=== PATIENT | male | born 1950 | race Caucasian/White ===

== ENCOUNTER 2022-07-19 05:26 | Observation (INO) | payer BC, MEDICARE, OTHER ==
[2022-07-14 16:59] LABS: BASOPHILS % (AUTO) 0.4 % (0-1); EOSINOPHILS % (AUTO) 0.7 % (0-6); LYMPHOCYTES # (AUTO) 1.4 X10'3 (1.1-4.8); LYMPHOCYTES % (AUTO) 21.1 % (21-51); MEAN CORPUSCULAR HEMOGLOBIN 34.1 PG (27.0-31.0); MEAN CORPUSCULAR HGB CONC 34.4 g/dL (33.0-36.5); MEAN CORPUSCULAR VOLUME 99.3 FL (78-98); MEAN PLATELET VOLUME 6.4 FL (7.4-10.4); MONOCYTES # (AUTO) 0.6 X10'3 (0-0.9); MONOCYTES % (AUTO) 9.6 % (2-12); NEUTROPHILS # (AUTO) 4.5 X10'3 (1.8-7.7); NEUTROPHILS % (AUTO) 68.2 % (42-75); PRE OP HEMATOCRIT 41.6 % (42.0-52.0); PRE OP HEMOGLOBIN 14.3 g/dL (14.0-17.9); PRE OP PLATELET COUNT 218 X10'3 (140-440); RED BLOOD COUNT 4.19 X10'6 (4.70-6.10); RED CELL DISTRIBUTION WIDTH 13.4 % (11.5-14.5)
[2022-07-14 17:22] LABS: ALBUMIN 4.1 G/DL (3.4-5.0); ALBUMIN/GLOBULIN RATIO 1.2 (1.1-1.5); ALKALINE PHOSPHATASE 82 IU/L (46-116); BLOOD UREA NITROGEN 13 MG/DL (7-18); BUN/CREATININE RATIO 14.9 (5.4-32.0); CALCIUM 9.4 MG/DL (8.5-10.1); CHLORIDE 98 MMOL/L (99-107); CREATININE 0.87 MG/DL (0.60-1.10); PRE OP ALT 21 U/L (30-65); PRE OP ANION GAP 6 (8-16); PRE OP AST 25 U/L (10-37); PRE OP BILIRUB, TOTAL 0.7 MG/DL (0.0-1.0); PRE OP GLUCOSE 108 MG/DL (70-104); PRE OP POTASSIUM 4.1 MMOL/L (3.4-5.1); PRE OP SODIUM 133 MMOL/L (135-145); TOTAL CARBON DIOXIDE 28.6 MMOL/L (24-32); TOTAL PROTEIN 7.4 G/DL (6.4-8.2); eGFR 86 ML/MIN
[~2022-07-19] VITALS: Ht 172.7 cm; Wt 82.1 kg
[2022-07-19] VITALS (23 sets, daily range): BP systolic 113–153; BP diastolic 61–85
[~2022-07-19 05:26] MED LIST: ALLO300T8 PO; APIX5TAB3 PO; ATOR20TA66 PO; COLC0.6T72 PO; ESOM40CA54 PO; HYDR12.55 PO; LOSA50TA64 PO; METO-395 PO; ONDA-103 PO; ringers solution, lacted 1,000 ML IV SCH
[2022-07-19] MEDS ORDERED: vancomycin 1,500 MG in NS 300ml IV soln IV ONE (05:30)
[2022-07-19] MEDS ORDERED: tranexamic acid 650mg tablet PO ONE (05:30)
[2022-07-19] MEDS ORDERED: famotidine 20mg tablet PO ONE (05:30)
[2022-07-19] MEDS ORDERED: cefazolin 2gm/D5W 100mL 100 ML IV ONE (05:30)
[2022-07-19] MEDS ORDERED: DOCUMENT DATE & TIME OF BETA-BLOCKER PO ONE (05:30)
--- NOTE | 2022-07-19 05:30 | NUR ---
PULSES PRESENT AND MARKED. PATIENT USED MUPIROCIN CREAM AND DID NOT WATCH VIDEO. EDUCATED PATIENT IN THE USE OF THE INCENTIVE SPIROMETER AND IT IMPORTANCE
[2022-07-19] MEDS ORDERED: ketorolac trometh. 30mg/ml inj. ONE (06:45)
[2022-07-19] MEDS ORDERED: BUPIVAcaine 0.5% inj/PF 0 ML ONE (06:45)
[2022-07-19] MEDS ORDERED: ROPIVAcaine 0.5% (5mg/ml) 30ml vial ONE (06:59)
--- NOTE | 2022-07-19 07:00 | NUR ---
TEMPORARILY HELD TRANEXAMIC ACID TABS UNTIL I SPOKE WITH THE SURGEON. DR SCOTT IS AWARE THE PATIENT IS COLORBLIND AND STATES TO GIVE MEDICATION. ADMIN MED AFTER SPEAKING WITH THE DOCTOR.
[2022-07-19] MEDS ORDERED: fentaNYL/PF 50MCG/1 ML 2ML syringe ONE (07:29)
[2022-07-19] MEDS ORDERED: midazolam 1 mg/ML 2ml injection ONE (07:31)
[2022-07-19] MEDS ORDERED: ondansetron/PF 4mg/2ml inj IV PRN ×2 (07:45→09:45)
[2022-07-19] MEDS ORDERED: ROPIVAcaine 0.2% (10 MG/5 ML) BOLUS INJECTION INTERSCALE PRN (07:45)
[2022-07-19] MEDS ORDERED: ROPIVAcaine 0.2%/PF PUMP/bolus 550 ML ADDCANAL SCH (07:45)
[2022-07-19] MEDS ORDERED: morphine 2 MG/ML inj. syringe IV PRN (07:45)
[2022-07-19] MEDS ORDERED: HYDROmorphone/PF 0.2 MG/ML SYRINGE IV PRN ×2 (07:45)
[2022-07-19] MEDS ORDERED: ringers solution, lacted 1,000 ML IV SCH (07:45)
[2022-07-19] MEDS ORDERED: ROPIVAcaine 0.2%/PF PUMP/bolus 550 ML INTERSCALE SCH (07:47)
[2022-07-19] MEDS ORDERED: sevoflurane 250ml liquid IH ONE (07:49)
[2022-07-19] MEDS ORDERED: LIDOcaine 1%/PF 5ML 10 MG/ML VIAL ONE (09:00)
[2022-07-19] MEDS ORDERED: ondansetron/PF 4mg/2ml inj ONE (09:00)
[2022-07-19] MEDS ORDERED: propofol inj 20 ML IV ONE (09:00)
[2022-07-19] MEDS ORDERED: dexamethasone sod phosphate 4mg/ml inj. ONE (09:00)
[2022-07-19] MEDS ORDERED: acetaminophen 1,000mg/100ml IV 100 ML IV ONE (09:00)
[2022-07-19] MEDS ORDERED: rocuronium 10mg/ml inj IV ONE (09:00)
[2022-07-19] MEDS ORDERED: neostigmine methylsulfate 1 MG/ML 10ml vial ONE (09:01)
[2022-07-19] MEDS ORDERED: glycopyrrolate 0.2mg/ml inj ONE ×2 (09:01→09:25)
--- NOTE | 2022-07-19 09:37 | NUR ---
Received from OR via HOSPITAL BED TO ROOM 6, accompanied by Anesthesiologist DR HUNG and report given by Anesthesiolgist. PT PRESETNS WITH PIV 20G LEFT HAND, RIGHT SHOULDER WRAP WITH POWDER PACK AND SLING, CDI. PT HOOKED UP TOMONITOR, IV TYLENOL RUNNING FROM THE OR ALONG WITH LR INTO PIV. PT HOOKED UP TO SCD, VSS. Addendum: 07/19/22 at 1000 by Shy Alvarado RN, RN Amended: Links added.
[2022-07-19] MEDS: PCA WASTE DOCUMENTATION 1 MG ML MC SCH (09:41)
[2022-07-19] MEDS ORDERED: HYDROmorphone 1 mg/ml syringe IV PRN (09:45)
[2022-07-19] MEDS ORDERED: HYDROcodone/acetaminophen 10/325mg tab PO PRN (09:45)
[2022-07-19] MEDS ORDERED: oxyCODONE IR 5mg (immed. release) tablet PO PRN ×2 (09:45)
[2022-07-19] MEDS ORDERED: magnesium hydroxide 30ml (MOM) UD suspension PO PRN (09:45)
[2022-07-19] MEDS ORDERED: non-formulary drug (Ondansetron HCl 1 TAB) PO PRN (09:45)
[2022-07-19] MEDS ORDERED: colchicine 0.6mg tablet PO PRN (09:45)
[2022-07-19] MEDS ORDERED: diphenhydrAMINE 25mg capsule PO PRN ×2 (09:45)
[2022-07-19] MEDS ORDERED: acetaminophen 325mg tablet PO PRN (09:45)
[2022-07-19] MEDS ORDERED: HYDROmorphone inj. 0.5 MG/0.5 ML DISP.SYRIN IV PRN (09:45)
[2022-07-19] MEDS ORDERED: bisacodyl 10mg suppository rectal RC PRN (09:45)
--- NOTE | 2022-07-19 10:45 | NUR ---
PT'S SHADY CALLED AND WAS GIVEN AN UPDATE ON PT.
--- NOTE | 2022-07-19 11:27 | NUR ---
Report called to receiving nurse ASHLEY CHEN Transferred via HOSPITAL BED TO ROOM 360B BY ANU CHEN. BED IN LOW LOCKED POSITION WITH CLAL LIGHT IN REACH, PT HOOOKED UP TO VITALS MACHINE. TWO PT Belongings BAGS TAKEN TO ROOM 360B. Special Issues communicated to receiving nurse. Addendum: 07/19/22 at 1137 by Shy Alvarado RN RN Amended: Links added.
[2022-07-19] MEDS: potassium cl 20mEq in 1/2 NS 1,000 ML IV SCH ×3 (13:18→20:37)
[2022-07-19] MEDS: acetaminophen 325mg tablet PO SCH ×2 (14:53→20:40)
[2022-07-19] MEDS: ceFAZolin/D5W- 1GM premix 50 ML IV SCH (16:14)
--- NOTE | 2022-07-19 18:05 | NUR ---
Problems reprioritized. Patient report given, questions answered & plan of care reviewed with Perla CHEN.
[2022-07-19] MEDS ORDERED: vancomycin/NS 1 GM ADD-VANTAGE 250 ML IV SCH (20:00)
[2022-07-19] MEDS: apixaban 5mg tablet PO SCH (20:47)
[2022-07-19] MEDS ORDERED: sennosides 8.6mg tablet PO SCH (21:00)
[2022-07-20] MEDS: ceFAZolin/D5W- 1GM premix 50 ML IV SCH (00:13)
[2022-07-20] MEDS: acetaminophen 325mg tablet PO SCH ×3 (02:14→14:00)
[2022-07-20 02:25] VITALS: BP 130/65
[2022-07-20 06:00] VITALS: BP 148/88
--- NOTE | 2022-07-20 06:19 | NUR ---
Problems reprioritized. Patient report given, questions answered & plan of care reviewed with GUSTAVO PRINCE.
--- NOTE | 2022-07-20 06:22 | NUR ---
Patient in room [facility]. I have received report from Sandhya CHEN and had the opportunity to ask questions and assume patient care.
[2022-07-20 07:12] LABS: BASOPHILS % (AUTO) 0.1 % (0-1); EOSINOPHILS % (AUTO) 0.1 % (0-6); HEMOGLOBIN 10.7 g/dl (14.0-17.9); LYMPHOCYTES # (AUTO) 0.7 X10'3 (1.1-4.8); LYMPHOCYTES % (AUTO) 8.6 % (21-51); MEAN CORPUSCULAR HEMOGLOBIN 34.4 PG (27.0-31.0); MEAN CORPUSCULAR HGB CONC 34.5 g/dL (33.0-36.5); MEAN CORPUSCULAR VOLUME 99.5 FL (78-98); MEAN PLATELET VOLUME 6.6 FL (7.4-10.4); MONOCYTES # (AUTO) 0.8 X10'3 (0-0.9); MONOCYTES % (AUTO) 8.8 % (2-12); NEUTROPHILS # (AUTO) 7.1 X10'3 (1.8-7.7); NEUTROPHILS % (AUTO) 82.4 % (42-75); PLATELET COUNT 173 X10'3 (140-440); RED BLOOD COUNT 3.11 X10'6 (4.70-6.10); WHITE BLOOD COUNT 8.6 X10'3 (4.5-11.0)
[2022-07-20 07:23] LABS: ANION GAP 6 (8-16); CHLORIDE 95 MMOL/L (99-107); POTASSIUM 4.3 MMOL/L (3.5-5.1); SODIUM 127 MMOL/L (135-145); TOTAL CARBON DIOXIDE 26.1 MMOL/L (24-32)
[2022-07-20] MEDS ORDERED: losartan 50mg tablet PO SCH (08:00)
[2022-07-20] MEDS ORDERED: pantoprazole 40mg Tablet.DR PO SCH (08:00)
[2022-07-20] MEDS ORDERED: HYDROchlorothiazide 12.5mg capsule PO SCH (08:00)
[2022-07-20] MEDS ORDERED: atorvastatin 20mg tablet PO SCH (08:00)
[2022-07-20] MEDS ORDERED: allopurinol 300 MG tablet PO SCH (08:00)
[2022-07-20] MEDS ORDERED: metoprolol succinate 25mg (24-HOUR) SR. Tablet PO SCH (08:00)
[2022-07-20] MEDS: HYDROcodone/acetaminophen 10/325mg tab PO PRN ×2 (09:18→13:23)
[2022-07-20] MEDS: potassium cl 20mEq in 1/2 NS 1,000 ML IV SCH (09:18)
[2022-07-20] MEDS: PCA WASTE DOCUMENTATION 1 MG ML MC SCH (09:41)
[2022-07-20 10:00] VITALS: BP 121/73
--- NOTE | 2022-07-20 10:00 | NUR ---
There is no DOOR HANGER to waste, On-Q ball present and intact. Settings at 6
[2022-07-20 10:04] VITALS: BP_SYST 121
[2022-07-20] MEDS: apixaban 5mg tablet PO SCH (10:04)
--- NOTE | 2022-07-20 13:44 | NUR ---
Pat from physial therapy called to report that patient is cleared from PT for d/c
--- NOTE | 2022-07-20 14:03 | NUR ---
Joint surgery consult: Pt s/p R shoulder surgery this admit per EMR. Pt/SO seen by RD at bedside for written/verbal high protein diet ed w/ RD contact information provided. 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 RD reviewed appropriate ONS supplementation options w/ pt/SO. RD encouraged pt/SO to contact dietitian's office if further nutrition questions/concerns. Addendum: 07/20/22 at [address] Amended: Links added.
--- NOTE | 2022-07-20 14:44 | NUR ---
Patient is AOx4, able to make needs known. Patient is stable and appropriate for discharge. Discharge paperwork and education provided re restrictions, follow up, and On Q ball settings/removal. Patient and his both verbalized understanding. All questions addressed as anticipated. PIV removed, pressure provided, cannula intact, patient tolerated well. Patient assisted out of facility via w/c by auxillary staff accompanied by .
[2022-07-21] MEDS ORDERED: acetaminophen 325mg tablet PO PRN (09:45)
== END 2022-07-20 14:45 | disposition home or self-care (01) ==
LOC: PAS IN 05:26 → INTOOBSV 05:26 → EDSTATUS 08:15 → SUR 3N 11:37
PROVIDERS: ADMIT Orthopaedic Surgery; ATTEND Orthopaedic Surgery
DX: M75.121 Complete rotator cuff tear or rupture of right shoulder, not specified as traumatic (principal); M75.21 Bicipital tendinitis, right shoulder; M19.011 Primary osteoarthritis, right shoulder; I10 Essential (primary) hypertension; I48.91 Unspecified atrial fibrillation; K21.9 Gastro-esophageal reflux disease without esophagitis; M10.9 Gout, unspecified; Z85.828 Personal history of other malignant neoplasm of skin; Z79.899 Other long term (current) drug therapy
CPT/HCPCS: 23430; 23472; 36415; 80051; 80053; 82948; 85025; 87081; 96365; 96366; 96367; 97110; 97161; 97530; C1776; G0378; J0131; J0690; J1100; J1885; J2250; J2405; J2704; J2710; J2795; J3010; J3370; J3480; J3490; J7120; Q0163; A4565; A4615; A4618; A7000; S0020